=== PATIENT | male | born 1975 | race Caucasian/White ===

== ENCOUNTER 2023-03-17 08:53 | Outpatient (OUT) | payer SELFPAY ==
[2023-03-17 09:10] LABS: Basophils Absolute Auto 0.1 10^3/uL (0.0-0.1); Basophils Percent Auto 1.4 % (0.2-2.0); Eosinophils Absolute Auto 0.4 10^3/uL (0.0-0.7); Eosinophils Percent Auto 4.6 % (0.9-7.0); Hematocrit 50.8 % (42.0-54.0); Hemoglobin 16.9 g/dL (14.0-18.0); Immature Granulocytes Abs Auto 0.05 10^3/uL (0.00-0.03); Immature Granulocytes Pct Auto 0.6 % (0.0-0.5); Lymphocytes Absolute Auto 2.6 10^3/uL (1.2-3.8); Lymphocytes Percent Auto 28.5 % (20.5-60.0); Mean Corpuscular HGB Conc 33.3 g/dL (29.9-35.2); Mean Corpuscular Hemoglobin 29.5 pg (25.9-34.0); Mean Corpuscular Volume 88.8 fL (80.0-94.0); Mean Platelet Volume 11.2 fL (9.5-13.5); Monocytes Absolute Auto 0.6 10^3/uL (0.3-0.8); Monocytes Percent Auto 6.9 % (1.7-12.0); Neutrophils Absolute Auto 5.2 10^3/uL (1.4-6.5); Platelet Count 172 10^3/uL (150-450); Red Blood Count 5.72 10^6/uL (4.70-6.10); Red Cell Distribution Width 13.1 % (11.0-15.0)
[2023-03-17 09:42] LABS: Estimated Average Glucose 91 mg/dL; Glycohemoglobin A1C 4.8 % (4.5-6.2)
[2023-03-17 10:06] LABS: Alanine Aminotransferase 38 U/L (16-63); Albumin Globulin Ratio 1.3; Alkaline Phosphatase 94 U/L (46-116); Anion Gap 11.7; Aspartate Amino Transferase 18 U/L (15-37); Bilirubin Total 0.5 mg/dL (0.2-1.0); Calcium 8.7 mg/dL (8.5-10.1); Carbon Dioxide 26.5 mmol/L (21.0-32.0); Chloride 107 mmol/L (98-107); Chol HDL Ratio 5.3; Cholesterol 159 mg/dL (<=200); Estimated GFR (African America >60 (>=60); Estimated GFR (Non-African Ame >60 (>=60); Free T3 2.77 pg/mL (2.18-3.98); Globulin 3.2 g/dL; Glucose 97 mg/dL (74-106); HDL Cholesterol 30 mg/dL (40-60); Potassium 4.2 mmol/L (3.5-5.1); Sodium 141 mmol/L (136-145); Thyroid Stimulating Hormone 2.706 uIU/mL (0.358-3.740); Total Protein 7.2 g/dL (6.4-8.2); Triglycerides 137 mg/dL (<=150); Uric Acid 7.3 mg/dL (3.5-7.2); VLDL CHOLESTEROL 27.4 mg/dL
[2023-03-18 12:11] LABS: Insulin 33.6 uIU/mL (2.6-24.9)
== END 2023-03-17 08:54 | disposition home or self-care (01) ==
PROVIDERS: PCP Nurse Practitioner Family; Visit Provider Nurse Practitioner Family
DX: Z01.89 Encounter for other specified special examinations (principal)
CPT/HCPCS: 36415; 80053; 80061; 83036; 83525; 84436; 84443; 84481; 84550; 85025

== ENCOUNTER 2023-09-10 14:08 | Emergency (ER) | payer SELFPAY ==
[2023-09-10 14:17] VITALS: BP 126/89; PULSE 102; TEMP 37; O2SAT 97; BMI 33.8
--- NOTE | 2023-09-10 14:24 | XR_ITS ---
The [address] [address] Patient Name: MEG CARIAS MRN: [id number] date: 1975 Sex: M Assigned Patient Location: ER Current Patient Location: ED.MAIN Accession/Order Number: [id number] Exam Date: 09/10/2023 14:38 Report Date: 09/10/2023 15:12 At the request of: CRISTIAN ARGUELLES Procedure: XR knee RT 4V PROCEDURE: XR knee RT 4V HISTORY: pain [; right knee pain since falling on steps; history of patella fracture COMPARISON: XR knee right 05/18/2020 FINDINGS: BONES:Degenerative ossified along the articular margins of all 3 compartments. Mild narrowing of the medial joint space. Stable separate ossification along superior lateral margin of the patella consistent with remote fracture versus ununited secondary ossification center. No acute fracture or dislocation.. SOFT TISSUES:No visible soft tissue swelling. EFFUSION:None visible. OTHER: Negative. XR/XR knee RT 4V IMPRESSION: 1. No appreciable acute bone abnormality. 2. Grossly stable moderate degenerative changes and remote fracture versus ununited secondary ossification center of the patella. Electronically authenticated by: NICHOL VILLAREAL Date: 09/10/2023 15:12
--- NOTE | 2023-09-10 15:23 | ED_ITS ---
HPI HPI - Extremity Injury (Lower) General Chief Complaint: Extremity Injury, Lower Stated Complaint: LOWER EXTREMITY INJURY Time Seen by Provider: 09/10/23 14:54 Source: patient Mode of arrival: walk-in History of Present Illness HPI Narrative: Patient is a 48-year-old male who presents to the emergency department for the evaluation of an injury to the right knee that occurred at home yesterday. Patient fell down approximately 4 stairs and injured his knee. He states he did hit his head but did not get knocked out and has had no persistent headache, neck pain or back pain. He is able to ambulate. No medications taken prior to arrival. X-rays were obtained prior to my evaluation, patient on direct questioning does admit to an injury with a fractured patella several years ago when living in [place]. Related Data Previous Rx's ?Medication ?Instructions ?Recorded hydrocodone 5 mg-acetaminophen 325 1 tab PO Q6H PRN pain 3 days #12 09/10/23 mg tablet tabs ketorolac 10 mg tablet 10 mg PO TID PRN pain #10 tabs 09/10/23 Allergies Allergy/AdvReac Type Severity Reaction Status Date / Time No Known Drug Allergies Allergy Verified 09/10/23 14:21 Opioid HPI Opioid Management Most Recent Pain and Opioid Data: No Data to Display Review of Systems ROS Constitutional Denies: fever or chills Ears, nose, mouth, and throat Denies: throat pain or nasal congestion Cardiovascular Denies: chest pain Respiratory Denies: shortness of breath Gastrointestinal Denies: nausea or vomiting Musculoskeletal Reports: extremity pain, joint pain and limited range of motion; Denies: back pain or neck pain Integumentary/Breast Denies: rash Neurological Denies: headache, numbness in extremities or weakness in extremities Hematologic/Lymphatic Denies: easy bruising or easy bleeding Exam Narrative Exam Narrative: Gen.: Awake, alert, in no distress Head: Normocephalic, atraumatic ENT: Moist mucous membranes Respiratory: No respiratory distress Extremities: Moves extremities equally, limited flexion and extension of the right knee. Patient is able to ambulate. No visible joint effusion, patella is stable. Diffuse tenderness of the anterior knee. Psych: Normal mood and affect Neuro: No focal neuro deficit Skin: Warm, dry, intact Constitutional Vital Signs, click to edit/add: Last Vital Signs Temp 98.6 F 09/10/23 14:17 Pulse 102 H 09/10/23 14:17 Resp 16 09/10/23 14:17 BP 126/89 09/10/23 14:17 Pulse Ox 97 09/10/23 14:17 O2 Del Method Room Air 09/10/23 14:17 Course Vital Signs Vital signs: Vital Signs Temperature 98.6 F 09/10/23 14:17 Pulse Rate 102 H 09/10/23 14:17 Respiratory Rate 16 09/10/23 14:17 Blood Pressure 126/89 09/10/23 14:17 Pulse Oximetry 97 09/10/23 14:17 Oxygen Delivery Method Room Air 09/10/23 14:17 Temperature 98.6 F 09/10/23 14:17 Pulse Rate 102 H 09/10/23 14:17 Respiratory Rate 16 09/10/23 14:17 Blood Pressure 126/89 09/10/23 14:17 Pulse Oximetry 97 09/10/23 14:17 Oxygen Delivery Method Room Air 09/10/23 14:17 MDM - Extremity Injury (Lower) MDM Narrative Medical decision making narrative: X-rays with no evidence of acute fracture or dislocation. There is a remote patellar fracture versus bipartite patella. Patient placed in an Anup wrap and short knee immobilizer. He was offered crutches. Medicated for symptoms in the ER. Rest, ice, elevate. He is neurovascularly intact at discharge. He is referred to orthopedics. He states he has crutches and a cane at home. Return to the ER if symptoms change or worsen SUPERVISED APC VISIT, PHYSICIAN ATTESTATION: Based on the medical record the care appears appropriate. ? Medical Records Attestation: I reviewed the patient's medical records. Imaging Data xr knee: Attestation: I have reviewed the pertinent imaging results. Radiologist's impression: ITS Impressions Knee X-Ray 09/10/23 14:24 IMPRESSION: 1. No appreciable acute bone abnormality. 2. Grossly stable moderate degenerative changes and remote fracture versus ununited secondary ossification center of the patella. Electronically authenticated by: DONTA VILLAREAL Date: 09/10/2023 15:12 Discharge Plan Discharge Stand Alone Forms: Portal Instructions Chief Complaint: Extremity Injury, Lower Clinical Impression: Right knee sprain Patient Disposition: Home, Self-Care Time of Disposition Decision: 15:21 Condition: Good Prescriptions / Home Meds: New hydrocodone-acetaminophen 5-325 mg tablet 1 tab PO Q6H PRN (Reason: pain) 3 Days Qty: 12 0RF Rx Instructions: DX: M25.561 ketorolac 10 mg tablet 10 mg PO TID PRN (Reason: pain) Qty: 10 0RF Print Language: Chinese Instructions: Knee Sprain (ED) Referrals: GREGORY HERRING [Primary Care Provider] - 1 week Donta Corea MD [Physician] - As needed
[2023-09-10] MEDS: HYDROCODONE/ACET 5-325 MG TABLET 1 TAB PO (15:26)
[2023-09-10] MEDS: KETOROLAC TROMETHAMINE 10 MG TABLET PO (15:26)
== END 2023-09-10 15:33 | disposition home or self-care (01) ==
PROVIDERS: Emergency Provider Emergency Medicine Emergency Medical Services; PCP Nurse Practitioner Family
DX: S83.91XA Sprain of unspecified site of right knee, initial encounter (principal); W10.9XXA Fall (on) (from) unspecified stairs and steps, initial encounter
CPT/HCPCS: 73564; 99284